=== PATIENT | female | born 1940 | race Caucasian/White ===

== ENCOUNTER → 2019-03-07 15:51 | Outpatient (CLI) | payer MEDICARE, SELFPAY ==
[2019-03-07 17:46] LABS: Hematocrit 43.7 % (37-47); Mean Corpuscular Hgb 28.3 pg (27.0-32.0); Mean Corpuscular Volume 88.3 fL (81-99); Platelet Count 319 K/mm3 (150-450); RBC Distribution Width CV 13.2 % (11.6-14.6); Red Blood Count 4.95 M/mm3 (4.2-5.4)
[2019-03-07 18:15] LABS: Hemoglobin A1c 7.8 % (4.2-6.3)
== END ==
PROVIDERS: Visit Provider Advanced Practice Midwife
DX: N39.0 Urinary tract infection, site not specified (principal); R73.9 Hyperglycemia, unspecified
CPT/HCPCS: 36415; 83036; 85027